=== PATIENT | female | born 1960 | race Caucasian/White ===

== ENCOUNTER 2018-05-19 19:22 | Emergency (ER) | payer BC ==
[2018-05-19 19:41] VITALS: BP 149/101
--- NOTE | 2018-05-19 19:45 | UC ---
Upper Extremity HPI - HPI Summary HPI Summary: Patient is a 58 year old woman, who present today to the urgent care with locked right ring finger for past 2 hours. She has a history of trigger finger but this time it's not able to unlock. She denies much pain. She has never had any treatment including corticosteroid injection for this in the past - History of Current Complaint Chief Complaint: UCUpperExtremity Stated Complaint: FINGER INJURY Time Seen by Provider: 05/19/18 19:33 Hx Obtained From: Patient Pain Intensity: 0 - Allergies/Home Medications Allergies/Adverse Reactions: Allergies Allergy/AdvReac Type Severity Reaction Status Date / Time No Known Allergies Allergy Verified 05/19/18 19:32 Home Medications: Home Medications NK [No Home Medications Reported] 05/19/18 [History Confirmed 05/19/18] PMH/Surg Hx/FS Hx/Imm Hx - Additional Past Medical History Additional PMH: recently diagnosed with hypertension, not on any medications. Previously Healthy: Yes - Surgical History Surgical History: None - Social History Alcohol Use: Occasionally Substance Use Type: None Smoking Status (MU): Current Some Day Smoker Review of Systems All Other Systems Reviewed And Are Negative: Yes Constitutional: Positive: Negative Skin: Positive: Negative Eyes: Positive: Negative ENT: Positive: Negative Respiratory: Positive: Negative Cardiovascular: Positive: Negative Gastrointestinal: Positive: Negative Genitourinary: Positive: Negative Motor: Positive: Negative Neurovascular: Positive: Negative Musculoskeletal: Positive: Other: - locked right ring finger in flexion Neurological: Positive: Negative Psychological: Positive: Negative Is Patient Immunocompromised?: No Physical Exam - Summary Physical Exam Summary: Physical Exam: Const: Appears well. No signs of apparent distress present. Alert and oriented x 3. Musculo: Walks with a normal gait. Head/Face: Atraumatic, normocephalic on inspection. Eyes: EOMI and PERRLA in both eyes. Conjunctivae clear. No discharge noted ENT: Hearing normal, Respiratory: Respirations are unlabored. CVS: Regular rate and Rhythm, S1S2 normal , no murmurs identified. Extremities: Peripheral circulation is grossly normal. Pulses 2+she Abdomen: Soft nondistended Skin: No lesions or rash located on the upper extremities or on the lower extremities. Neuro: Cranial nerves II to XII intact, motor and sensory intact. DTR Intact bilaterally. Mood is normal. Affect is normal. Right hand: right ring finger locked in flexion/triggered . no swelling or tenderness noted Triage Information Reviewed: Yes Vital Signs: Initial Vital Signs Temp 98.4 F 05/19/18 19:28 Pulse 58 05/19/18 19:28 Resp 16 05/19/18 19:28 BP 149/101 05/19/18 19:28 Pulse Ox 100 05/19/18 19:28 Vital Signs Reviewed: Yes Procedures - Procedure Summary Procedure Summary: Procedure Note Right ring finger unlocking trigger: I discussed risks (including pain, infection, bleeding), benefits, and alternatives (including not injecting). Informed consent was obtained from the patient. Prior to the procedure, a time out was performed. Patient was placed in the sitting position. After prepping the skin with alcohol under sterile conditions, right ring finger was anesthetized with 2 cc of 2% lidocaine followed by which the ring finger was unlocked. AlumaFoam splint was applied by myself. Post splint application, neurovascular exam intact. Post procedureinstructions were given. Patient will apply ice to the involved area and avoid any exacerbating activities for the next few days Upper Extremity Course/Dx - Course Course Of Treatment: during the visit today, her trigger finger was unlocked and AlumaFoam splint applied. we discussed about the possible corticosteroid injection of the A1 ike but she declined and would prefer it under ultrasound guidance. Plan to follow up with orthopedics for definitive management - Differential Dx/Diagnosis Provider Diagnosis: Trigger finger of right hand Discharge - Sign-Out/Discharge Documenting (check all that apply): Patient Departure All imaging exams completed and their final reports reviewed: No Studies - Discharge Plan Condition: Stable Disposition: HOME Patient Education Materials: Trigger Finger (ED) Referrals: Wendy Cobos MD [Primary Care Provider] - Aris Peterson MD [Medical Doctor] - Additional Instructions: Please continue using the splint Follow up with hand surgeon in a week Patients blood pressure slightly high in Urgent care today , plan follow up with PCP for better control Return to Urgent care / ER if symptoms get worse. - Billing Disposition and Condition Condition: STABLE Disposition: Home
[2018-05-19] MEDS ORDERED: Lidocaine 2% PF * 5 ML VIAL INJ ONE (19:56)
== END 2018-05-19 20:39 | disposition home or self-care (01) ==
LOC: UCEAST 19:22
DX: M65.341 Trigger finger, right ring finger (principal); I10 Essential (primary) hypertension; Z72.0 Tobacco use
CPT/HCPCS: 20552; 99211; G0463

== ENCOUNTER 2018-07-07 10:18 | Emergency (ER) | payer SELFPAY ==
[2018-07-07 10:31] VITALS: BP 123/78
--- NOTE | 2018-07-07 11:07 | UC ---
Hand/Wrist HPI - HPI Summary HPI Summary: 58 -year-old female who has a history of a trigger finger of the right ring finger. She states she was opening an umbrella and its got stuck in the flexed position. She denies any numbness or tingling. She came here because the last time she had a problem like this in the finger was injected and then the finger was straightened. She has not followed up with a hand specialist since then. - History Of Current Complaint Chief Complaint: UCUpperExtremity Stated Complaint: RT RINGFINGER INJURY Time Seen by Provider: 07/07/18 10:20 Hx Obtained From: Patient ?: No Onset/Duration: Sudden Onset - Sudden onset well opening an umbrella Severity Initially: Mild Severity Currently: Mild Pain Intensity: 2 Character Of Pain: Dull Aggravating Factor(s): Movement - Unable to extend the ring finger. Alleviating Factor(s): Nothing Associated Signs And Symptoms: Positive: Negative - Allergies/Home Medications Allergies/Adverse Reactions: Allergies Allergy/AdvReac Type Severity Reaction Status Date / Time No Known Allergies Allergy Verified 07/07/18 11:52 PMH/Surg Hx/FS Hx/Imm Hx Previously Healthy: No - Surgical History Surgical History: None - Family History Known Family History: Positive: Non-Contributory - Social History Occupation: Employed Full-time Alcohol Use: Occasionally Substance Use Type: None Smoking Status (MU): Former Smoker Review of Systems All Other Systems Reviewed And Are Negative: Yes Motor: Positive: Negative Neurovascular: Positive: Negative Musculoskeletal: Positive: Decreased ROM, Other: - The right ring finger is stuck in a flexed position Neurological: Positive: Negative Is Patient Immunocompromised?: No Physical Exam Triage Information Reviewed: Yes Appearance: Well-Appearing, No Pain Distress, Well-Nourished Vital Signs: Initial Vital Signs Temp 97.3 F 07/07/18 10:27 Pulse 50 07/07/18 10:27 Resp 18 07/07/18 10:27 BP 123/78 07/07/18 10:27 Pulse Ox 100 07/07/18 10:27 Vital Signs Reviewed: Yes Musculoskeletal: Positive: No Edema. Negative: ROM Limited @ - Right ring finger is stuck in the flexed position and patient is unable to extend it. Neurological: Positive: Alert, Muscle Tone Normal - Peripheral pulses neuro sensation and capillary refill. Psychological Exam: Normal Skin Exam: Normal Hand/Wrist Course/Dx - Course Course Of Treatment: The patient stated the last time she was seen here she had the finger injected and she is requesting that. She was quite insistent that she wanted the finger injected and taken care of today. After discussion with Dr. Diya Paniagua, we were able to make an appointment with her at [facility] with Dr. Leone, with whom Dr. Paniagua spoke, and he is willing to see her there and evaluate her for possible further treatment. It was also stressed to her the importance of follow-up with an orthopedist/hand specialist for further care after today to prevent further incidence of trigger finger. She is agreeable with this plan of action. - Differential Dx/Diagnosis Provider Diagnosis: Trigger finger, right ring finger Discharge - Sign-Out/Discharge Documenting (check all that apply): Patient Departure All imaging exams completed and their final reports reviewed: No Studies - Discharge Plan Condition: Fair Disposition: HOME Patient Education Materials: Trigger Finger (ED) Referrals: Wendy Cobos MD [Primary Care Provider] - Additional Instructions: Go directly to [facility]. You will be pre-registered. - Billing Disposition and Condition Condition: FAIR Disposition: Home - Attestation Statements Provider Attestation: I was available for consult. This patient was seen by the [facility]. The patient was not presented to, seen by, or examined by me. -Arvind
== END 2018-07-07 11:04 | disposition home or self-care (01) ==
LOC: UCEAST 10:18
DX: M65.341 Trigger finger, right ring finger (principal); Z87.891 Personal history of nicotine dependence
CPT/HCPCS: 99211; G0463

== ENCOUNTER 2018-07-07 11:00 | Emergency (ER) | payer BC ==
[2018-07-07] MEDS ORDERED: Lidocaine 1%* 5 ML VIAL INJ ONE (11:50)
[2018-07-07 11:56] VITALS: BP 129/84
--- NOTE | 2018-07-07 12:08 | ED ---
Upper Extremity Pain - HPI Summary HPI Summary: Patient is a 58 year old female, who present today to the urgent care with a locked right fourth finger today. She reports significant pain. She has a history of right fourth trigger finger and that was unlocked in urgent care 2 months ago. She was traveling so she could not follow-up with hand surgeon and her finger locked again today. - History of Current Complaint Chief Complaint: UCUpperExtremity Stated Complaint: RT RING FINGER COMPLAINT Time Seen by Provider: 07/07/18 11:47 Hx Obtained From: Patient - Allergies/Home Medications Allergies/Adverse Reactions: Allergies Allergy/AdvReac Type Severity Reaction Status Date / Time No Known Allergies Allergy Verified 07/07/18 11:52 PMH/Surg Hx/FS Hx/Imm Hx Previously Healthy: Yes Endocrine/Hematology History: Denies: Hx Diabetes, Hx Thyroid Disease Cardiovascular History: Reports: Hx Hypertension Respiratory History: Denies: Hx Asthma, Hx Chronic Obstructive Pulmonary Disease (COPD) GI History: Denies: Hx Ulcer - Cancer History Hx Chemotherapy: No Hx Radiation Therapy: No - Surgical History Hx Anesthesia Reactions: No Infectious Disease History: No Infectious Disease History: Denies: Hx Hepatitis, Hx Human Immunodeficiency Virus (HIV), Traveled Outside the [place] in Last 30 Days - Family History Known Family History: Positive: None, Non-Contributory - Social History 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 No signs of apparent distress present. Alert and oriented x 3. Musculo: Walks with a normal gait. Head/Face: Atraumatic, normocephalic on inspection. Eyes: EOMI and PERRLA in both eyes. Conjunctivae clear. No discharge noted ENT: Hearing normal Respiratory: Respirations are unlabored. CVS: Regular rate and Rhythm, S1S2 normal , no murmurs identified. Extremities: Peripheral circulation is grossly normal. Pulses 2+ Abdomen : Soft Skin: No lesions or rash located on the upper extremities or on the lower extremities. Neuro: Cranial nerves II to XII intact, motor and sensory intact. DTR Intact bilaterally. Mood is normal. Affect is normal. Right fourth finger: Trigger and locked. Tender to palpate at the first ike Triage Information Reviewed: Yes Vital Signs On Initial Exam: Initial Vitals Temp Pulse Resp BP Pulse Ox 97.5 F 59 16 129/84 100 07/07/18 11:52 07/07/18 11:52 07/07/18 11:52 07/07/18 11:52 07/07/18 11:52 Vital Signs Reviewed: Yes Procedures - Procedure Summary Procedure Summary: Procedure note: Right fourth finger trigger finger unlocking under local anesthesia: I discussed risks (including pain, infection, bleeding), benefits, and alternatives (including not injecting). Informed consent was obtained from the patient. Time out was performed appropriately. Patient was placed in the sitting position. After prepping the skin with alcohol and betadine, under sterile conditions, right fourth finger digital block was given with 2cc 1% preservative free lidocaine without epinephrine . And finger was reduced manually and candice tape afterwards .Patient tolerated procedure well. No immediate complications were noted. Patient will report immediately with any signs of infection. Post injection instructions were given. Patient will apply ice to the involved area and avoid any exacerbating activities for the next few days Diagnostics - Vital Signs Vital Signs Temp Pulse Resp BP Pulse Ox 07/07/18 11:52 97.5 F 59 16 129/84 100 - Laboratory Lab Statement: Any lab studies that have been ordered have been reviewed, and results considered in the medical decision making process. Course/Dx - Course Course Of Treatment: During the visit today, we discussed the findings and further plan. Her finger was reduced under local anesthesia successfully and candice taped . She has a stack suspended at home which she will start using when she reaches home. She will follow up with orthopedics for a possible corticosteroid injection/surgical consult . Patient expressed understanding . - Diagnoses Provider Diagnoses: Trigger finger of right hand Discharge - Sign-Out/Discharge Documenting (check all that apply): Patient Departure All imaging exams completed and their final reports reviewed: No Studies - Discharge Plan Condition: Stable Disposition: HOME Patient Education Materials: Trigger Finger (ED) Referrals: Wendy Cobos MD [Primary Care Provider] - Rosio Millan MD [Medical Doctor] - Additional Instructions: Start using the stack splint that you have at home. Follow up with orthopedics for a possible corticosteroid injection/surgical consult . Patients blood pressure slightly high in Urgent care today(prehypertensive range) , plan follow up with PCP . Return to Urgent care / ER if symptoms get worse. - Billing Disposition and Condition Condition: STABLE Disposition: Home
== END 2018-07-07 12:48 | disposition home or self-care (01) ==
LOC: UCCORT 11:00
DX: M65.341 Trigger finger, right ring finger (principal); I10 Essential (primary) hypertension; Z87.891 Personal history of nicotine dependence
CPT/HCPCS: 20552; 99211; G0463

== ENCOUNTER 2019-06-24 09:38 | Emergency (ER) | payer BC ==
[2019-06-24 09:46] VITALS: BP 145/81
[2019-06-24] MEDS ORDERED: Lidocaine 2% PF 5 ML VIAL INJ ONE (10:06)
== END 2019-06-24 10:45 | disposition home or self-care (01) ==
LOC: UCEAST 09:38